=== PATIENT | female | born 1970 | race Caucasian/White ===

== ENCOUNTER 2017-01-01 00:17 | Inpatient (IN) | payer OTHER ==
[2017-01-01] VITALS (8 sets, daily range): BP systolic 101–123; BP diastolic 47–58
[~2017-01-01] VITALS: Ht 170.2 cm; Wt 64.1 kg
[~2017-01-01 00:17] MED LIST: /PANT40TA PO; ALTACE PO; ASPI81TA13 PO; ASPI81TA85 PO; ATEN25TA PO; ATOR1TAB19 PO; BIOT50004 PO; BUSP30TA PO; COLA100C PO; DEPA250T2 PO; DEPA500T2 PO; DESYREL PO; DRIS50002 PO; FOLI1TAB2 PO; GABA800T PO; HUMA100I3 SC; HUMALOG; IBUP200C PO; IBUP800T23 PO; INSUHUMDS SC; INSULADS SC; INSULIN PUMP HUMALOG; LATU40TA PO; LIDO4CR TOP; LISI2.5T3 PO; MAALSUS2 PO; MAGN1TAB25 PO; MAGN400T5 PO; METH10TA PO; METO50TA2 PO; MOM30SS PO; MUCI600T34 PO; NEUR300C PO; NICO14DI3 TD; OXYC15TA66 PO; PERCOCET PO; PHEN25IN3 PR; PROZ20CA11 PO; RAMI25CA PO; REGL10TA6 PO; SENO8.6T10 PO; SENO8.6T2 PO; TAPA10TA2 PO; THIA50CA PO; TRAZ100T4 PO; TYLE650T30 PO; VICO7.5T11 PO; VIST25CA PO; ZANT1TAB PO; ZEST2.5T3 PO; ZOFR4SOL PO; ZOFR4TAB3 PO
[2017-01-01] MEDS ORDERED: D5W/0.45% SODIUM CHLORIDE 1,000 ML IV SCH ×2 (00:27→14:30)
[2017-01-01] MEDS: NS 1,000 ML IV SCH ×2 (00:27→06:54)
[2017-01-01] MEDS ORDERED: HumuLIN R (REGULAR) INSULIN (NovoLIN R) **100U/ML** PER UNIT IV ONE ×2 (00:30→15:30)
[2017-01-01] MEDS ORDERED: INSULIN HUMAN REGULAR 100 UNITS in NS 99 ML IV SCH ×3 (02:45→15:30)
[2017-01-01] MEDS ORDERED: INSULIN IV RATE CHANGE DOCUMENTATION ML/HR XX SCH ×2 (02:45→15:15)
[2017-01-01] MEDS ORDERED: LEVO25TA5 PO (02:58)
[2017-01-01 03:10] LABS: AMPHETAMINES LEVEL URINE NEGATIVE (NEGATIVE); BENZODIAZEPINES URINE NEGATIVE (NEGATIVE); COCAINE METABOLITE URINE NEGATIVE (NEGATIVE); CONTROL LINE INT CTR LINE PRESENT; METHADONE URINE NEGATIVE (NEGATIVE); OPIATES URINE POSITIVE (NEGATIVE); TRICYCLIC ANTIDEPRESS URINE NEGATIVE (NEGATIVE)
--- NOTE | 2017-01-01 03:20 | REPUSA ---
CLINICAL HISTORY: Cough. COMMENTS: Single view of the chest reveals no evidence of active pleural or pulmonary parenchymal abnormality. The heart, mediastinum and pulmonary vessels appear normal. IMPRESSION: NORMAL CHEST. Thank you for your kind referral of this patient.
[2017-01-01] MEDS ORDERED: ONDANSETRON 4MG/2ML VIAL (J2405) IV PRN (03:30)
[2017-01-01 03:42] LABS: ALBUMIN 2.7 GM/DL (3.2-5.2); ALBUMIN/GLOBULIN RATIO 1.08 (1.00-1.93); ALT/SGPT 16 U/L (12-78); ANION GAP 16 MEQ/L (8-16); AST/SGOT 10 U/L (15-37); BILIRUBIN,TOTAL 0.5 MG/DL (0.2-1.0); BLOOD UREA NITROGEN 25 MG/DL (7-18); CALCIUM LEVEL 7.6 MG/DL (8.5-10.1); CARBON DIOXIDE LEVEL 16 MEQ/L (21-32); CHLORIDE LEVEL 108 MEQ/L (98-107); CREATININE FOR GFR 1.08 MG/DL (0.55-1.02); GLOMERULAR FILTRATION RATE 57.9 (>58); GLUCOSE, FASTING 269 MG/DL (70-105); MAGNESIUM LEVEL 1.4 MG/DL (1.8-2.4); PHOSPHORUS LEVEL 2.7 MG/DL (2.5-4.9); POTASSIUM SERUM 4.1 MEQ/L (3.5-5.1); SODIUM LEVEL 140 MEQ/L (136-145); TOTAL PROTEIN 5.2 GM/DL (6.4-8.2)
[2017-01-01 03:48] LABS: ALKALINE PHOSPHATASE 74 U/L (45-117)
[2017-01-01 04:13] LABS: OSMOLALITY SERUM 294 MOSM/KG (275-295)
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
[2017-01-01 05:01] LABS: VENOUS BASE EXCESS -11.1 (-2.0-2.0); VENOUS O2 SATURATION 97.2 % (60.0-80.0); VENOUS PARTIAL PRESSURE CO2 22.1 mmHg (38.0-50.0); VENOUS PARTIAL PRESSURE O2 94.5 mmHg (30.0-50.0); VENOUS STANDARD HCO3 15.8 MEQ/L
[2017-01-01] MEDS: MAG SULF 1GM/100ML (MAG RUN) 1 GM in APPROPRIATE DILUENT 1 EA IV SCH ×2 (05:04→06:03)
[2017-01-01 05:32] LABS: ANION GAP 13 MEQ/L (8-16); BLOOD UREA NITROGEN 26 MG/DL (7-18); CALCIUM LEVEL 7.7 MG/DL (8.5-10.1); CARBON DIOXIDE LEVEL 17 MEQ/L (21-32); CHLORIDE LEVEL 111 MEQ/L (98-107); CREATININE FOR GFR 0.99 MG/DL (0.55-1.02); GLOMERULAR FILTRATION RATE > 60.0 (>58); GLUCOSE, FASTING 248 MG/DL (70-105); POTASSIUM SERUM 3.9 MEQ/L (3.5-5.1); SODIUM LEVEL 141 MEQ/L (136-145)
[2017-01-01] MEDS ORDERED: LEVOTHYROXINE 0.025 MG TAB (25 MCG) PO SCH (06:00)
[2017-01-01] MEDS: LevoFLOXacin 750 MG TABLET PO SCH (06:03)
[2017-01-01 07:54] LABS: ANION GAP 12 MEQ/L (8-16); BLOOD UREA NITROGEN 25 MG/DL (7-18); CALCIUM LEVEL 8.1 MG/DL (8.5-10.1); CARBON DIOXIDE LEVEL 17 MEQ/L (21-32); CHLORIDE LEVEL 112 MEQ/L (98-107); GLOMERULAR FILTRATION RATE > 60.0 (>58); GLUCOSE, FASTING 254 MG/DL (70-105); POTASSIUM SERUM 3.9 MEQ/L (3.5-5.1); SODIUM LEVEL 141 MEQ/L (136-145)
[2017-01-01] MEDS: LISINOPRIL *2.5 MG* TAB PO SCH (08:24)
[2017-01-01] MEDS ORDERED: ENOXAPARIN 30 MG/0.3 ML SYR (J1650) SC SCH (09:00)
[2017-01-01 09:45] LABS: ANION GAP 13 MEQ/L (8-16); BLOOD UREA NITROGEN 23 MG/DL (7-18); CALCIUM LEVEL 7.8 MG/DL (8.5-10.1); CARBON DIOXIDE LEVEL 17 MEQ/L (21-32); CHLORIDE LEVEL 113 MEQ/L (98-107); CREATININE FOR GFR 0.87 MG/DL (0.55-1.02); GLOMERULAR FILTRATION RATE > 60.0 (>58); GLUCOSE, FASTING 215 MG/DL (70-105); MAGNESIUM LEVEL 2.1 MG/DL (1.8-2.4); POTASSIUM SERUM 4.1 MEQ/L (3.5-5.1); SODIUM LEVEL 143 MEQ/L (136-145)
[2017-01-01 11:41] LABS: CALCIUM LEVEL 8.7 MG/DL (8.5-10.1); CREATININE FOR GFR 1.11 MG/DL (0.55-1.02); GLOMERULAR FILTRATION RATE 56.1 (>58)
[2017-01-01 14:04] LABS: CALCIUM LEVEL 8.5 MG/DL (8.5-10.1); CREATININE FOR GFR 1.13 MG/DL (0.55-1.02); GLOMERULAR FILTRATION RATE 54.9 (>58)
[2017-01-01 14:17] LABS: POTASSIUM SERUM 5.6 MEQ/L (3.5-5.1)
[2017-01-01] MEDS ORDERED: NS 1,000 ML IV SCH ×2 (14:30→15:05)
[2017-01-01] MEDS: D5W/0.45% SODIUM CHLORIDE 1,000 ML IV SCH ×2 (15:05→20:00)
[2017-01-01] MEDS: INSULIN IV RATE CHANGE DOCUMENTATION ML/HR XX SCH ×4 (15:24→20:03)
[2017-01-01 15:35] LABS: CALCIUM LEVEL 8.6 MG/DL (8.5-10.1); CREATININE FOR GFR 1.27 MG/DL (0.55-1.02)
[2017-01-01 15:37] LABS: POTASSIUM SERUM 5.3 MEQ/L (3.5-5.1)
--- NOTE | 2017-01-01 17:24 | REP ---
Clinical: Central line placement . Comparison: 01/01/2017 . Findings: The mediastinum and cardiac silhouette are stable and within normal limits for portable technique. Left subclavian catheter with tip in the SVC. The lung alonso are clear without acute consolidation, effusion, or pneumothorax. Skeletal structures are intact. Impression: Normal portable chest x-ray Subclavian catheter with tip in the SVC. No pneumothorax. Signed by Luis Antonio Verde MD 01/01/2017 05:16 P
[2017-01-01 18:19] LABS: CALCIUM LEVEL 8.2 MG/DL (8.5-10.1); CREATININE FOR GFR 1.08 MG/DL (0.55-1.02); GLOMERULAR FILTRATION RATE 57.9 (>58); POTASSIUM SERUM 4.4 MEQ/L (3.5-5.1)
[2017-01-01 20:49] LABS: ANION GAP 10 MEQ/L (8-16); BLOOD UREA NITROGEN 28 MG/DL (7-18); CALCIUM LEVEL 8.2 MG/DL (8.5-10.1); CARBON DIOXIDE LEVEL 21 MEQ/L (21-32); CHLORIDE LEVEL 113 MEQ/L (98-107); CREATININE FOR GFR 0.98 MG/DL (0.55-1.02); GLOMERULAR FILTRATION RATE > 60.0 (>58); GLUCOSE, FASTING 141 MG/DL (70-105); POTASSIUM SERUM 4.6 MEQ/L (3.5-5.1); SODIUM LEVEL 144 MEQ/L (136-145)
[2017-01-01] MEDS ORDERED: traZODone 100 MG TAB PO PRN ×2 (21:00→21:15)
[2017-01-01] MEDS ORDERED: GLUCOSE 4 GM CHEW TABLET PO PRN (21:15)
[2017-01-01] MEDS ORDERED: GLUCAGON FOR INJ 1 MG VIAL (J1610) SC PRN (21:15)
[2017-01-01] MEDS ORDERED: DEXTROSE 50% 50 ML SYRINGE IV PRN (21:15)
[2017-01-01] MEDS: LEVEMIR (INSULIN DETEMIR) 1 UNITS/0.01ML SC SCH (22:12)
[2017-01-01] MEDS: guaiFENesin ER 600 MG TAB PO SCH (22:13)
[2017-01-01] MEDS: traZODone 100 MG TAB PO PRN (22:13)
[2017-01-02] VITALS: BP 102/57
[2017-01-02 00:04] LABS: ANION GAP 8 MEQ/L (8-16); BLOOD UREA NITROGEN 25 MG/DL (7-18); CALCIUM LEVEL 7.8 MG/DL (8.5-10.1); CARBON DIOXIDE LEVEL 22 MEQ/L (21-32); CHLORIDE LEVEL 112 MEQ/L (98-107); CREATININE FOR GFR 0.91 MG/DL (0.55-1.02); GLOMERULAR FILTRATION RATE > 60.0 (>58); GLUCOSE, FASTING 183 MG/DL (70-105); POTASSIUM SERUM 4.4 MEQ/L (3.5-5.1); SODIUM LEVEL 142 MEQ/L (136-145)
[2017-01-02] MEDS: HumaLOG INSULIN (NovoLOG) PER UNIT SC SCH ×7 (00:08→23:43)
[2017-01-02] MEDS: D5W/0.45% SODIUM CHLORIDE 1,000 ML IV SCH ×3 (00:41→10:17)
[2017-01-02 04:00] VITALS: BP 113/59
[2017-01-02] MEDS: LevoFLOXacin 750 MG TABLET PO SCH (05:09)
[2017-01-02 05:28] LABS: BASO % 0.1 % (0.0-1.0); EOS % 0.1 % (0.0-3.0); LARGE UNSTAINED CELL # 0.2 K/mm3 (0.0-0.4); LARGE UNSTAINED CELL % 1.4 % (0.0-4.0); LYMPH % 17.3 % (24.0-44.0); MEAN CORPUSCULAR HEMOGLOBIN 30.6 pg (27.0-33.0); MONO # 0.6 K/mm3 (0.0-0.8); MONO % 5.4 % (0.0-5.0); NEUTROPHILS # 8.9 K/mm3 (1.8-7.7); NEUTROPHILS % 75.6 % (36.0-66.0); PLATELET COUNT, AUTOMATED 347 k/mm3 (150-450); RED CELL DISTRIBUTION WIDTH 12.8 % (11.5-14.5); WHITE BLOOD COUNT 11.7 K/mm3 (4.0-10.0)
[2017-01-02 05:36] LABS: ANION GAP 8 MEQ/L (8-16); BLOOD UREA NITROGEN 20 MG/DL (7-18); CARBON DIOXIDE LEVEL 24 MEQ/L (21-32); CHLORIDE LEVEL 114 MEQ/L (98-107); CREATININE FOR GFR 0.81 MG/DL (0.55-1.02); GLOMERULAR FILTRATION RATE > 60.0 (>58); GLUCOSE, FASTING 149 MG/DL (70-105); POTASSIUM SERUM 3.8 MEQ/L (3.5-5.1); SODIUM LEVEL 146 MEQ/L (136-145)
[2017-01-02 07:30] VITALS: BP 113/58
[2017-01-02] MEDS: guaiFENesin ER 600 MG TAB PO SCH ×2 (08:06→20:33)
[2017-01-02] MEDS: LISINOPRIL *2.5 MG* TAB PO SCH (08:06)
[2017-01-02] MEDS ORDERED: guaiFENesin ER 600 MG TAB PO SCH ×2 (09:00)
[2017-01-02 09:10] VITALS: BP 110/53
[2017-01-02] MEDS ORDERED: SODIUM CHLORIDE 0.9% INJ 10 ML SYR IV PRN (09:30)
--- NOTE | 2017-01-02 10:39 | IPNPDOC ---
Subjective Date Seen The patient was seen on 01/02/17. Subjective Chief Complaint/HPI The patient is a 46-year-old female admitted with a reason for visit of DKA. General: Denies: Chills, Night Sweats Constitutional: Denies: Chills, Fever Eyes: Denies: Pain, Vision change ENT: Denies: Ear Pain, Head Aches Skin: Denies: Lesions, Rash Pulmonary: Denies: Cough, Dyspnea Cardiovascular: Denies: Chest Pain, Palpitations Gastrointestinal: Denies: Abdominal Pain, Nausea, Vomiting Genitourinary: Denies: Dysuria, Frequency Hematologic: Denies: Bleeding Excessively, Bruising Objective Physical Examination General Exam: Positive: Alert, Cooperative, No Acute Distress ENT Exam: Positive: Atraumatic Neck Exam: Negative: JVD Chest Exam: Positive: Clear to auscultation, Normal air movement, Rhonchi ( Upper lung zones bilaterally), Negative: Rales, Wheezing Heart Exam: Positive: Normal S1, Normal S2, Rate Normal Telemetry: Positive: Sinus Abdomen Exam: Positive: Soft, Negative: Tenderness Extremity Exam: Negative: Swelling, Tenderness Assessment /Plan Plan/VTE VTE Prophylaxis Ordered?: No VTE Exclusion Mechanical Proph: Low Risk for VTE Plan 1. Diabetic ketoacidosis likely 2/2 Viral Upper Respiratory Tract Infection, resolved s/p IVF Hydration, IV Insulin Therapy The patient has been transitioned to SC Insulin for now We will transition her to insulin pump therapy if she remains stable on SC insulin therapy this afternoon Levemir 10 units qhs, ISS q4h We will continue to monitor her blood sugar levels 2. History of hypothyroidism The patient's lab work revels low TSH levels, elevated T4 (4.2) and T3 (12.1) levels suggestive of a Hyperthyroid function at this time After discussion with the patient, she states that her thyroid hormone levels have been fluctuating for the last 6 months. She follows at [facility] in [place], and they have been titrating her Synthroid dose She has been taking 25 mcg of Synthroid at home, however this has been held since admission here The patient is not displaying any signs or symptoms of hyperthyroidism at this time We will withhold her Synthroid dose, and ask her to follow-up with the [facility] as an outpatient 3. Possible Viral vs Bacterial URI The patient's symptoms have markedly improved at this time We will finish her trial of Levaquin here 4. History of subdural hematoma secondary to blunt trauma. 5. History of polysubstance abuse. The patient states that she has attended rehabilitation for this, and denies any recreational drug use Urine toxicology screen was positive for opiates. 6. History of suicide attempt. Denies any suicidal ideations 7. Hypertension Continue lisinopril 8. History of tobacco use. Quit smoking a year ago. DVT prophylaxis-we will continue on SCDs, given her history of subdural hematoma Disposition-pending clinical improvement, if the patient's glucose levels remain stable after she is transitioned to her insulin pump therapy she may be discharged in next 24 hours. VS, I&O, 24H, Fishbone Vital Signs/I&O Vital Signs Date Time Temp Pulse Resp B/P Pulse Ox O2 Delivery O2 Flow Rate FiO2 01/02/17 09:10 98.4 92 18 110/53 94 Room Air 01/01/17 02:30 2.0 I&O- Last 24 Hours up to 6 AM 01/02/17 06:00 Intake Total 4451 ml Output Total 3700 ml Balance 751 ml Laboratory Data 24H LABS Laboratory Tests 2 01/01/17 11:18: Anion Gap 14, Blood Urea Nitrogen 24H, Creatinine 1.11H, Sodium Level 141, Potassium Level 5.0#, Chloride Level 111H, Carbon Dioxide Level 16L, Calcium Level 8.7, Glomerular Filtration Rate 56.1L 01/01/17 11:24: Bedside Glucose (Misc Panel) 298H 01/01/17 13:22: Anion Gap 17H, Blood Urea Nitrogen 29H, Creatinine 1.13H, Sodium Level 137, Potassium Level 5.6H, Chloride Level 107, Carbon Dioxide Level 13L, Calcium Level 8.5, Glomerular Filtration Rate 54.9L 01/01/17 14:55: Bedside Glucose (Misc Panel) 439H 01/01/17 14:56: Anion Gap 19H, Blood Urea Nitrogen 33H, Creatinine 1.27H, Sodium Level 139, Potassium Level 5.3H, Chloride Level 108H, Carbon Dioxide Level 12L, Calcium Level 8.6, Glomerular Filtration Rate 48.0L 01/01/17 15:59: Bedside Glucose (Misc Panel) 410H 01/01/17 17:11: Bedside Glucose (Misc Panel) 327H 01/01/17 17:39: Anion Gap 13, Blood Urea Nitrogen 33H, Creatinine 1.08H, Sodium Level 143, Potassium Level 4.4, Chloride Level 112H, Carbon Dioxide Level 18L, Calcium Level 8.2L, Glomerular Filtration Rate 57.9L, Total Creatine Kinase 117, Creatine Kinase MB 2.9, Creatine Kinase MB Relative Index 2.47, Troponin I 0.42H 01/01/17 18:00: Bedside Glucose (Misc Panel) 306H 01/01/17 18:43: Bedside Glucose (Misc Panel) 260H 01/01/17 19:57: Bedside Glucose (Misc Panel) 173H 01/01/17 20:11: Anion Gap 10, Blood Urea Nitrogen 28H, Creatinine 0.98, Sodium Level 144, Potassium Level 4.6, Chloride Level 113H, Carbon Dioxide Level 21, Calcium Level 8.2L, Glomerular Filtration Rate > 60.0 01/01/17 20:59: Bedside Glucose (Misc Panel) 147H 01/01/17 22:04: Bedside Glucose (Misc Panel) 160H 01/01/17 23:03: Bedside Glucose (Misc Panel) 190H 01/01/17 23:33: Anion Gap 8, Blood Urea Nitrogen 25H, Creatinine 0.91, Sodium Level 142, Potassium Level 4.4, Chloride Level 112H, Carbon Dioxide Level 22, Calcium Level 7.8L, Glomerular Filtration Rate > 60.0 01/02/17 00:02: Bedside Glucose (Misc Panel) 178H 01/02/17 04:15: Bedside Glucose (Misc Panel) 154H 01/02/17 05:10: Anion Gap 8, White Blood Count 11.7H, Red Blood Count 3.22L, Hemoglobin 9.9L, Hematocrit 29.0L, Mean Corpuscular Volume 90.0, Mean Corpuscular Hemoglobin 30.6 , Mean Corpuscular Hemoglobin Concent 34.0, Red Cell Distribution Width 12.8, Platelet Count 347, Neutrophils (%) (Auto) 75.6H, Lymphocytes (%) (Auto) 17.3L, Monocytes (%) (Auto) 5.4H, Eosinophils (%) (Auto) 0.1, Basophils (%) (Auto) 0.1 , Neutrophils # (Auto) 8.9H, Lymphocytes # (Auto) 2.0, Monocytes # (Auto) 0.6, Eosinophils # (Auto) 0.0, Basophils # (Auto) 0.0, Blood Urea Nitrogen 20H, Creatinine 0.81, Sodium Level 146H, Potassium Level 3.8, Chloride Level 114H, Carbon Dioxide Level 24, Calcium Level 8.0L, Glomerular Filtration Rate > 60.0, Large Unclassified Cells # 0.2, Large Unclassified Cells % 1.4 01/02/17 07:52: Bedside Glucose (Misc Panel) 165H CBC/BMP Laboratory Tests 01/01/17 11:18 Calcium Level 8.7 01/01/17 13:22 Calcium Level 8.5 01/01/17 14:56 Calcium Level 8.6 01/01/17 17:39 Calcium Level 8.2 L, Total Creatine Kinase 117 01/01/17 20:11 Calcium Level 8.2 L 01/01/17 23:33 Calcium Level 7.8 L 01/02/17 05:10 Calcium Level 8.0 L, Red Blood Count 3.22 L, Mean Corpuscular Volume 90.0, Mean Corpuscular Hemoglobin 30.6, Mean Corpuscular Hemoglobin Concent 34.0, Red Cell Distribution Width 12.8, Neutrophils (%) (Auto) 75.6 H, Lymphocytes (%) (Auto) 17.3 L, Monocytes (%) (Auto) 5.4 H, Eosinophils (%) (Auto) 0.1, Basophils (%) ( Auto) 0.1, Neutrophils # (Auto) 8.9 H, Lymphocytes # (Auto) 2.0, Monocytes # ( Auto) 0.6, Eosinophils # (Auto) 0.0, Basophils # (Auto) 0.0 Microbiology Microbiology 01/01/17 Blood Culture - Preliminary, Resulted No growth after 24 hours . All specim... 01/01/17 Blood Culture - Preliminary, Resulted No growth after 24 hours . All specim... 01/01/17 MRSA Screen - Final, Complete 01/01/17 Respiratory Virus Panel (PCR) ([facility]) - Final, Complete STONE JONES MD Jan 02, 2017 10:39
--- NOTE | 2017-01-02 11:23 | RO ---
DATE OF PROCEDURE: 01/01/2017 PREPROCEDURE DIAGNOSIS: Diabetic ketoacidosis, no vascular access. POSTPROCEDURE DIAGNOSIS: Diabetic ketoacidosis, no vascular access. SURGEON: Farhan Hernandez MD PROCEDURE: Insertion of left subclavian central line. ANESTHESIA: DESCRIPTION OF PROCEDURE: The patient's left infraclavicular fossa was prepped and draped in the usual sterile fashion. The infraclavicular fossa was then infiltrated with 1% Xylocaine. The subclavian vein was found on the first pass and the wire was passed without difficulty. The tract was dilated and the triple lumen catheter was placed by Seldinger technique. The ports were aspirated and flushed without difficulty and the catheter was secured to the chest wall with two #3-0 silk sutures. The patient tolerated the procedure well and chest x-ray is pending.
[2017-01-02] MEDS: SODIUM CHLORIDE 0.9% INJ 10 ML SYR IV SCH ×2 (12:13→22:00)
[2017-01-02 14:00] VITALS: BP 132/61
[2017-01-02] MEDS: LEVEMIR (INSULIN DETEMIR) 1 UNITS/0.01ML SC SCH (20:35)
[2017-01-02] MEDS ORDERED: LEVEMIR (INSULIN DETEMIR) 1 UNITS/0.01ML SC SCH (21:00)
[2017-01-02 22:00] VITALS: BP 128/63
[2017-01-02] MEDS: traZODone 100 MG TAB PO PRN (22:00)
[2017-01-03] MEDS: HumaLOG INSULIN (NovoLOG) PER UNIT SC SCH ×2 (03:59→08:00)
[2017-01-03] MEDS: LevoFLOXacin 750 MG TABLET PO SCH (05:30)
[2017-01-03] MEDS: SODIUM CHLORIDE 0.9% INJ 10 ML SYR IV SCH ×3 (05:31→21:25)
[2017-01-03 05:49] LABS: BASO % 0.2 % (0.0-1.0); EOS % 0.9 % (0.0-3.0); LARGE UNSTAINED CELL # 0.1 K/mm3 (0.0-0.4); LARGE UNSTAINED CELL % 2.2 % (0.0-4.0); LYMPH # 1.9 K/mm3 (1.5-4.5); LYMPH % 31.1 % (24.0-44.0); MEAN CORPUSCULAR HEMOGLOBIN 30.1 pg (27.0-33.0); MEAN CORPUSCULAR HGB CONC 33.4 g/dl (32.0-36.5); MEAN CORPUSCULAR VOLUME 90.1 fl (80.0-96.0); MONO # 0.5 K/mm3 (0.0-0.8); MONO % 7.8 % (0.0-5.0); NEUTROPHILS # 3.6 K/mm3 (1.8-7.7); NEUTROPHILS % 57.9 % (36.0-66.0); PLATELET COUNT, AUTOMATED 319 k/mm3 (150-450); RED CELL DISTRIBUTION WIDTH 12.6 % (11.5-14.5); WHITE BLOOD COUNT 6.2 K/mm3 (4.0-10.0)
[2017-01-03 06:00] VITALS: BP 114/55
[2017-01-03 06:04] LABS: ALBUMIN 2.4 GM/DL (3.2-5.2); ALBUMIN/GLOBULIN RATIO 0.96 (1.00-1.93); ALKALINE PHOSPHATASE 82 U/L (45-117); ALT/SGPT 52 U/L (12-78); ANION GAP 8 MEQ/L (8-16); AST/SGOT 64 U/L (15-37); BILIRUBIN,TOTAL 0.4 MG/DL (0.2-1.0); BLOOD UREA NITROGEN 12 MG/DL (7-18); CALCIUM LEVEL 8.1 MG/DL (8.5-10.1); CARBON DIOXIDE LEVEL 26 MEQ/L (21-32); CHLORIDE LEVEL 112 MEQ/L (98-107); CREATININE FOR GFR 0.63 MG/DL (0.55-1.02); GLOMERULAR FILTRATION RATE > 60.0 (>58); GLUCOSE, FASTING 110 MG/DL (70-105); POTASSIUM SERUM 4.3 MEQ/L (3.5-5.1); SODIUM LEVEL 146 MEQ/L (136-145); TOTAL PROTEIN 4.9 GM/DL (6.4-8.2)
[2017-01-03] MEDS: LISINOPRIL *2.5 MG* TAB PO SCH (08:20)
[2017-01-03] MEDS: guaiFENesin ER 600 MG TAB PO SCH ×2 (08:21→21:25)
--- NOTE | 2017-01-03 11:18 | IPNPDOC ---
Subjective Date Seen The patient was seen on 01/03/17. Subjective Chief Complaint/HPI The patient is a 46-year-old female admitted with a reason for visit of DKA. General: Denies: Chills, Night Sweats Constitutional: Denies: Chills, Fever Eyes: Denies: Pain, Vision change ENT: Denies: Ear Pain, Head Aches Skin: Denies: Lesions, Rash Pulmonary: Denies: Cough, Dyspnea Cardiovascular: Denies: Chest Pain, Palpitations Gastrointestinal: Denies: Nausea, Vomiting Genitourinary: Denies: Dysuria, Frequency Hematologic: Denies: Bleeding Excessively, Bruising Objective Physical Examination General Exam: Positive: Alert, Cooperative, No Acute Distress ENT Exam: Positive: Atraumatic Neck Exam: Negative: JVD Chest Exam: Positive: Clear to auscultation, Normal air movement, Rhonchi ( Upper lung zones bilaterally), Negative: Rales, Wheezing Heart Exam: Positive: Normal S1, Normal S2, Rate Normal Telemetry: Positive: Sinus Abdomen Exam: Positive: Soft, Negative: Tenderness Extremity Exam: Negative: Swelling, Tenderness Assessment /Plan Plan/VTE VTE Prophylaxis Ordered?: No VTE Exclusion Mechanical Proph: Low Risk for VTE Plan 1. Diabetic ketoacidosis likely 2/2 Viral Upper Respiratory Tract Infection, resolved s/p IVF Hydration, IV Insulin Therapy She did have an episode of hypoglycemia overnight, and this may be attributed to decreased appetite The patient has been transitioned from SC Insulin to Insulin Pump therapy now, as this will certainly control her blood sugars more precisely We will continue to monitor her blood sugar levels 2. History of hypothyroidism The patient's lab work revels low TSH levels, elevated T4 (4.2) and T3 (12.1) levels suggestive of a Hyperthyroid function at this time After discussion with the patient, she states that her thyroid hormone levels have been fluctuating for the last 6 months. She follows at [facility] in [place], and they have been titrating her Synthroid dose She has been taking 25 mcg of Synthroid at home, however this has been held since admission here The patient is not displaying any signs or symptoms of hyperthyroidism at this time We will withhold her Synthroid dose, and ask her to follow-up with the [facility] as an outpatient 3. Possible Viral vs Bacterial URI The patient's symptoms have markedly improved at this time We will finish her trial of Levaquin here 4. History of subdural hematoma secondary to blunt trauma. 5. History of polysubstance abuse. The patient states that she has attended rehabilitation for this, and denies any recreational drug use Urine toxicology screen was positive for opiates. 6. History of suicide attempt. Denies any suicidal ideations 7. Hypertension Continue lisinopril 8. History of tobacco use. Quit smoking a year ago. DVT prophylaxis-we will continue on SCDs, given her history of subdural hematoma Disposition-patient transitioned to Insulin Pump therapy, will monitor her glucose levels over the next 24 hrs given her labile glucose levels. Anticipate D/C in the AM if glucose levels stable. VS, I&O, 24H, Fishbone Vital Signs/I&O Vital Signs Date Time Temp Pulse Resp B/P Pulse Ox O2 Delivery O2 Flow Rate FiO2 01/03/17 08:48 Room Air 01/03/17 08:20 123/67 01/03/17 06:00 97.8 80 17 91 01/01/17 02:30 2.0 I&O- Last 24 Hours up to 6 AM 01/03/17 05:59 Intake Total 2500 ml Output Total 1400 ml Balance 1100 ml Laboratory Data 24H LABS Laboratory Tests 2 01/02/17 11:38: Bedside Glucose (Misc Panel) 224H 01/02/17 14:05: Bedside Glucose (Misc Panel) 224H 01/02/17 16:19: Bedside Glucose (Misc Panel) 268H 01/02/17 18:47: Bedside Glucose (Misc Panel) 56L 01/02/17 19:30: Bedside Glucose (Misc Panel) 141H 01/02/17 23:25: Bedside Glucose (Misc Panel) 189H 01/03/17 02:07: Bedside Glucose (Misc Panel) 37*L 01/03/17 02:20: Bedside Glucose Confirm (Misc) 45 01/03/17 03:51: Bedside Glucose (Misc Panel) 107H 01/03/17 05:34: Blood Urea Nitrogen 12, Creatinine 0.63, Sodium Level 146H, Potassium Level 4.3 , Chloride Level 112H, Carbon Dioxide Level 26, Calcium Level 8.1L, Aspartate Amino Transf (AST/SGOT) 64H, Alanine Aminotransferase (ALT/SGPT) 52, Alkaline Phosphatase 82, Total Bilirubin 0.4, Total Protein 4.9L, Albumin 2.4L, Albumin/ Globulin Ratio 0.96L, Anion Gap 8, White Blood Count 6.2, Red Blood Count 3.51L , Hemoglobin 10.5L, Hematocrit 31.6L, Mean Corpuscular Volume 90.1, Mean Corpuscular Hemoglobin 30.1, Mean Corpuscular Hemoglobin Concent 33.4, Red Cell Distribution Width 12.6, Platelet Count 319, Neutrophils (%) (Auto) 57.9, Lymphocytes (%) (Auto) 31.1, Monocytes (%) (Auto) 7.8H, Eosinophils (%) (Auto) 0.9, Basophils (%) (Auto) 0.2, Neutrophils # (Auto) 3.6, Lymphocytes # (Auto) 1.9, Monocytes # (Auto) 0.5, Eosinophils # (Auto) 0.0, Basophils # (Auto) 0.0, Glomerular Filtration Rate > 60.0, Large Unclassified Cells # 0.1, Large Unclassified Cells % 2.2 01/03/17 09:02: Bedside Glucose (Misc Panel) 167H CBC/BMP Laboratory Tests 01/03/17 05:34 Calcium Level 8.1 L, Aspartate Amino Transf (AST/SGOT) 64 H, Alanine Aminotransferase (ALT/SGPT) 52, Alkaline Phosphatase 82, Total Bilirubin 0.4, Total Protein 4.9 L, Albumin 2.4 L, Red Blood Count 3.51 L, Mean Corpuscular Volume 90.1, Mean Corpuscular Hemoglobin 30.1, Mean Corpuscular Hemoglobin Concent 33.4, Red Cell Distribution Width 12.6, Neutrophils (%) (Auto) 57.9, Lymphocytes (%) (Auto) 31.1, Monocytes (%) (Auto) 7.8 H, Eosinophils (%) (Auto) 0.9, Basophils (%) (Auto) 0.2, Neutrophils # (Auto) 3.6, Lymphocytes # (Auto) 1.9, Monocytes # (Auto) 0.5, Eosinophils # (Auto) 0.0, Basophils # (Auto) 0.0 Microbiology Microbiology 01/01/17 Blood Culture - Preliminary, Resulted No Growth after 48 hours. All Specime... 01/01/17 Blood Culture - Preliminary, Resulted No Growth after 48 hours. All Specime... 01/01/17 MRSA Screen - Final, Complete 01/01/17 Respiratory Virus Panel (PCR) ([facility]) - Final, Complete STONE JONES MD Jan 03, 2017 11:18
[2017-01-03 14:00] VITALS: BP 123/67
[2017-01-03] MEDS: traZODone 100 MG TAB PO PRN (21:25)
[2017-01-03 22:00] VITALS: BP 139/73
[2017-01-04] MEDS: LevoFLOXacin 750 MG TABLET PO SCH (05:40)
[2017-01-04] MEDS: SODIUM CHLORIDE 0.9% INJ 10 ML SYR IV SCH (05:41)
[2017-01-04 06:00] VITALS: BP 122/64
[2017-01-04 06:13] LABS: BASO % 0.2 % (0.0-1.0); EOS # 0.3 K/mm3 (0.0-0.50); EOS % 4.6 % (0.0-3.0); LARGE UNSTAINED CELL # 0.1 K/mm3 (0.0-0.4); LARGE UNSTAINED CELL % 2.5 % (0.0-4.0); LYMPH # 2.4 K/mm3 (1.5-4.5); LYMPH % 39.1 % (24.0-44.0); MEAN CORPUSCULAR HEMOGLOBIN 30.7 pg (27.0-33.0); MEAN CORPUSCULAR HGB CONC 34.1 g/dl (32.0-36.5); MEAN CORPUSCULAR VOLUME 90.1 fl (80.0-96.0); MONO # 0.4 K/mm3 (0.0-0.8); MONO % 6.8 % (0.0-5.0); NEUTROPHILS # 2.7 K/mm3 (1.8-7.7); NEUTROPHILS % 46.8 % (36.0-66.0); PLATELET COUNT, AUTOMATED 328 k/mm3 (150-450); RED CELL DISTRIBUTION WIDTH 12.5 % (11.5-14.5); WHITE BLOOD COUNT 5.7 K/mm3 (4.0-10.0)
[2017-01-04 06:24] LABS: ALBUMIN 2.3 GM/DL (3.2-5.2); ALBUMIN/GLOBULIN RATIO 0.88 (1.00-1.93); ALKALINE PHOSPHATASE 87 U/L (45-117); ALT/SGPT 57 U/L (12-78); ANION GAP 8 MEQ/L (8-16); AST/SGOT 53 U/L (15-37); BILIRUBIN,TOTAL 0.6 MG/DL (0.2-1.0); BLOOD UREA NITROGEN 16 MG/DL (7-18); CALCIUM LEVEL 8.1 MG/DL (8.5-10.1); CARBON DIOXIDE LEVEL 28 MEQ/L (21-32); CHLORIDE LEVEL 110 MEQ/L (98-107); GLOMERULAR FILTRATION RATE > 60.0 (>58); GLUCOSE, FASTING 81 MG/DL (70-105); POTASSIUM SERUM 3.9 MEQ/L (3.5-5.1); SODIUM LEVEL 146 MEQ/L (136-145); TOTAL PROTEIN 4.9 GM/DL (6.4-8.2)
[2017-01-04 09:18] VITALS: BP 122/64
[2017-01-04] MEDS: LISINOPRIL *2.5 MG* TAB PO SCH (09:18)
[2017-01-04] MEDS: guaiFENesin ER 600 MG TAB PO SCH (09:18)
[2017-01-04] MEDS ORDERED: LEVA750T PO (09:31)
--- NOTE | 2017-01-04 13:49 | DS.PDOC ---
Discharge Summary General Date of Admission Jan 01, 2017 at 11:51 Date of Discharge Jan 04, 2017 at 11:23 Discharge Summary PROCEDURES PERFORMED DURING STAY: None. COMPLICATIONS/CHIEF COMPLAINT: DKA DISCHARGE DIAGNOSES: 1. . Diabetic ketoacidosis 2. . Community-acquired pneumonia 3. . Hyperthyroidism SECONDARY DIAGNOSES: 1. . Diabetic ketoacidosis 2. . Community-acquired pneumonia 3. . Hyperthyroidism HISTORY OF PRESENT ILLNESS/HOSPITAL COURSE: 46-year-old female with past medical history of insulin-dependent diabetes mellitus, with insulin pump, dyslipidemia, history of hypothyroidism, polysubstance abuse, hypertension, and history of blood head trauma with subdural hematoma presented to the ER with a chief complaint of productive cough and fever. The patient states that she had been having a fever of 101, with a productive cough, and generalized fatigue for the past 10 days. In the [place] ER, the patient was found to have a blood sugar level greater than 500. The patient was started on IV fluids, and given subcutaneous insulin and sent to [facility] for further evaluation and management. During the patient's hospital stay here, she was continued on IV fluids, and IV insulin for management of diabetic ketoacidosis. In addition, the patient was started on Levaquin for management of possible underlying pneumonia. Once the patient's blood sugar levels, and underlying acidosis was stabilized, the patient was transitioned back on her insulin pump therapy. At this time, the patient's blood sugar levels have remained stable over the last 24 hours. In addition, the patient's symptoms of upper respiratory tract infection, and generalized fatigue have markedly improved since her hospitalization. In addition, the patient was found to have a low TSH level and elevated free T4 and free T3 levels. Of note, the patient states that her thyroid function tests have fluctuated between hypo-and hyperthyroid states over the last 6 months. She does follow with the [facility] for management of this. I informed the patient of the above findings, and have held her levothyroxine therapy since her admission here. She has not displayed any signs or symptoms of hyperthyroidism here. I have advised the patient to follow-up with the [facility] for further evaluation and management of her levothyroxine medication. ALLERGIES: Please see below. PHYSICAL EXAMINATION ON DISCHARGE: VITAL SIGNS: Please see below. General Exam: Positive: Alert, Cooperative, No Acute Distress ENT Exam: Positive: Atraumatic Neck Exam: Negative: JVD Chest Exam: Positive: Clear to auscultation, Normal air movement, Rhonchi ( Upper lung zones bilaterally), Negative: Rales, Wheezing Heart Exam: Positive: Normal S1, Normal S2, Rate Normal Telemetry: Positive: Sinus Abdomen Exam: Positive: Soft, Negative: Tenderness Extremity Exam: Negative: Swelling, Tenderness LABORATORY DATA: Please see below. IMAGING: Clinical: Central line placement . Comparison: 01/01/2017 . Findings: The mediastinum and cardiac silhouette are stable and within normal limits for portable technique. Left subclavian catheter with tip in the SVC. The lung alonso are clear without acute consolidation, effusion, or pneumothorax. Skeletal structures are intact. Impression: Normal portable chest x-ray VTE Prophylaxis ordered?: Yes DISCHARGE CONDITION: Stable. DISPOSITION: . Home ACTIVITY: . As tolerated DIET: . Carb consistent diet DISCHARGE PLAN AND INSTRUCTIONS: 1. . Follow-up with primary care physician within one to 2 weeks 2. . Follow-up of the [facility] for management of diabetes, and thyroid disease 3. . TIME SPENT ON DISCHARGE: Greater than 30 minutes. Vital Signs/I&Os Vital Signs Date Time Temp Pulse Resp B/P Pulse Ox O2 Delivery O2 Flow Rate FiO2 01/04/17 09:18 122/64 01/04/17 06:00 97.1 68 18 91 Room Air 01/01/17 02:30 2.0 I&O- Last 24 Hours up to 6 AM 01/04/17 06:00 Intake Total 2520 ml Output Total 5050 ml Balance -2530 ml Laboratory Data Labs 24H Laboratory Tests 2 01/03/17 16:23: Bedside Glucose (Misc Panel) 148H 01/03/17 20:47: Bedside Glucose (Misc Panel) 104 01/04/17 05:42: Blood Urea Nitrogen 16, Creatinine 0.70, Sodium Level 146H, Potassium Level 3.9 , Chloride Level 110H, Carbon Dioxide Level 28, Calcium Level 8.1L, Aspartate Amino Transf (AST/SGOT) 53H, Alanine Aminotransferase (ALT/SGPT) 57, Alkaline Phosphatase 87, Total Bilirubin 0.6, Total Protein 4.9L, Albumin 2.3L, Albumin/ Globulin Ratio 0.88L, Anion Gap 8, White Blood Count 5.7, Red Blood Count 3.81L , Hemoglobin 11.7L, Hematocrit 34.3L, Mean Corpuscular Volume 90.1, Mean Corpuscular Hemoglobin 30.7, Mean Corpuscular Hemoglobin Concent 34.1, Red Cell Distribution Width 12.5, Platelet Count 328, Neutrophils (%) (Auto) 46.8, Lymphocytes (%) (Auto) 39.1, Monocytes (%) (Auto) 6.8H, Eosinophils (%) (Auto) 4.6H, Basophils (%) (Auto) 0.2, Neutrophils # (Auto) 2.7, Lymphocytes # (Auto) 2.4, Monocytes # (Auto) 0.4, Eosinophils # (Auto) 0.3, Basophils # (Auto) 0.0, Glomerular Filtration Rate > 60.0, Large Unclassified Cells # 0.1, Large Unclassified Cells % 2.5 CBC/BMP Laboratory Tests 01/04/17 05:42 Calcium Level 8.1 L, Aspartate Amino Transf (AST/SGOT) 53 H, Alanine Aminotransferase (ALT/SGPT) 57, Alkaline Phosphatase 87, Total Bilirubin 0.6, Total Protein 4.9 L, Albumin 2.3 L, Red Blood Count 3.81 L, Mean Corpuscular Volume 90.1, Mean Corpuscular Hemoglobin 30.7, Mean Corpuscular Hemoglobin Concent 34.1, Red Cell Distribution Width 12.5, Neutrophils (%) (Auto) 46.8, Lymphocytes (%) (Auto) 39.1, Monocytes (%) (Auto) 6.8 H, Eosinophils (%) (Auto) 4.6 H, Basophils (%) (Auto) 0.2, Neutrophils # (Auto) 2.7, Lymphocytes # (Auto) 2.4, Monocytes # (Auto) 0.4, Eosinophils # (Auto) 0.3, Basophils # (Auto) 0.0 FSBS Laboratory Tests Test 01/03/17 16:23 01/03/17 20:47 Range/Units Bedside Glucose (Misc Panel) 148 104 70-105 MG/DL Microbiology Microbiology 01/01/17 Blood Culture - Preliminary, Resulted No Growth after 72 hours. All specime... 01/01/17 Blood Culture - Preliminary, Resulted No Growth after 72 hours. All specime... 01/01/17 MRSA Screen - Final, Complete 2/24/17 Respiratory Virus Panel (PCR) ([facility]) - Final, Complete Medications Scheduled Biotin (Vitamin H) (Biotin) 5,000 Mcg Cap 5,000 MCG PO DAILY (Reported) Insulin Human Lispro (Humalog) 1 Units/0.01 Ml Inj 0 SC ASDIRECTED (Reported) VIA INSULIN PUMP Levofloxacin Hemihydrate (Levaquin) 750 Mg Tab 750 MG PO DAILY@06 Lisinopril (Lisinopril) 2.5 Mg Tab 2.5 MG PO DAILY (Reported) Scheduled PRN Ibuprofen (Ibuprofen) 800 Mg Tab 800 MG PO TID PRN PRN PAIN (Reported) Allergies Coded Allergies: No Known Drug Allergy (Verified Allergy, Unknown, 01/10/16) STONE JONES MD Jan 04, 2017 13:49
== END 2017-01-04 11:23 | disposition home or self-care (01) | DRG 720 ==
LOC: PREINTOOBSV 01:01 → M ICU 02:21 → OBSVTOIN 11:51 → M MSPAV 01-02 09:04
PROVIDERS: ADMIT Internal Medicine; ATTEND Internal Medicine
PROC: 05H633Z Insertion of Infusion Device into Left Subclavian Vein, Percutaneous Approach (ICD-10-PCS; principal; 2017-01-01)
DX: A41.9 Sepsis, unspecified organism (principal); E13.10 Other specified diabetes mellitus with ketoacidosis without coma; E13.649 Other specified diabetes mellitus with hypoglycemia without coma; E13.65 Other specified diabetes mellitus with hyperglycemia; E78.00 Pure hypercholesterolemia, unspecified; J06.9 Acute upper respiratory infection, unspecified; E03.9 Hypothyroidism, unspecified; I10 Essential (primary) hypertension; M25.551 Pain in right hip; M25.552 Pain in left hip; Z91.5 Personal history of self-harm; Z87.891 Personal history of nicotine dependence; Z79.4 Long term (current) use of insulin

== ENCOUNTER → 2017-08-13 | Outpatient (CLI) | payer MEDICAID ==
[~2017-08-13] MED LIST changes: -ASPI81TA13 PO; +ASPI81TA24 PO; -COLA100C PO; +COLA100C5 PO; -FOLI1TAB2 PO; +FOLI1TAB4 PO; +IBUP1TAB7 PO; -IBUP200C PO; +IBUP200C10 PO; -IBUP800T23 PO; +LEVA750T7 PO; +LEVO25TA5 PO; -METO50TA2 PO; +METO50TA7 PO; -MUCI600T34 PO; +MUCI600T37 PO; -SENO8.6T2 PO; +SENO8.6T5 PO; +TRAZ-136 PO; -TRAZ100T4 PO
[2017-08-13 14:41] LABS: BASO % 0.5 % (0.0-1.0); EOS # 0.2 10^3/uL (0.0-0.50); EOS % 2.4 % (0.0-3.0); IMMATURE GRANULOCYTE % 0.2 % (0-0); LYMPH # 1.9 10^3/uL (1.5-4.5); LYMPH % 23.4 % (24.0-44.0); MEAN CORPUSCULAR HEMOGLOBIN 30.2 pg (27.0-33.0); MEAN CORPUSCULAR HGB CONC 34.5 g/dl (32.0-36.5); MEAN CORPUSCULAR VOLUME 87.5 fl (80.0-96.0); MONO # 0.5 10^3/uL (0.0-0.8); MONO % 6.7 % (0.0-5.0); NEUTROPHILS # 5.4 10^3/uL (1.8-7.7); NEUTROPHILS % 66.8 % (36.0-66.0); PLATELET COUNT, AUTOMATED 345 10^3/uL (150-450); RED CELL DISTRIBUTION WIDTH 12.3 % (11.5-14.5)
[2017-08-13 15:06] LABS: ALBUMIN 3.6 GM/DL (3.2-5.2); ALBUMIN/GLOBULIN RATIO 1.29 (1.00-1.93); ALKALINE PHOSPHATASE 91 U/L (45-117); ALT/SGPT 23 U/L (12-78); ANION GAP 10 MEQ/L (8-16); AST/SGOT 14 U/L (15-37); BILIRUBIN,TOTAL 0.6 MG/DL (0.2-1.0); BLOOD UREA NITROGEN 10 MG/DL (7-18); CALCIUM LEVEL 8.9 MG/DL (8.5-10.1); CARBON DIOXIDE LEVEL 23 MEQ/L (21-32); CHLORIDE LEVEL 101 MEQ/L (98-107); CHOLESTEROL LEVEL 141 MG/DL (<200); CREATININE FOR GFR 0.72 MG/DL (0.55-1.02); FREE T4 3.37 NG/DL (0.76-1.46); GLOMERULAR FILTRATION RATE > 60.0 (>58); GLUCOSE, FASTING 229 MG/DL (70-105); SODIUM LEVEL 134 MEQ/L (136-145); TOTAL PROTEIN 6.4 GM/DL (6.4-8.2); TRIGLYCERIDES LEVEL 98 MG/DL (<150)
== END ==
LOC: M LAB 13:27
PROVIDERS: ATTEND Physician Assistant
DX: E05.90 Thyrotoxicosis, unspecified without thyrotoxic crisis or storm (principal); E78.5 Hyperlipidemia, unspecified; E10.649 Type 1 diabetes mellitus with hypoglycemia without coma; E55.9 Vitamin D deficiency, unspecified

== ENCOUNTER → 2018-01-13 | Outpatient (CLI) | payer OTHER ==
[2018-01-13 14:17] LABS: BASO # 0.1 10^3/uL (0.0-0.2); BASO % 0.8 % (0.0-1.0); EOS # 0.2 10^3/uL (0.0-0.50); EOS % 2.3 % (0.0-3.0); HEMATOCRIT 43.5 % (36.0-47.0); HEMOGLOBIN 15.1 g/dl (12.0-16.0); IMMATURE GRANULOCYTE % 0.1 % (0-3.0); LYMPH # 2.7 10^3/uL (1.5-4.5); LYMPH % 36.3 % (24.0-44.0); MEAN CORPUSCULAR HEMOGLOBIN 30.3 pg (27.0-33.0); MEAN CORPUSCULAR HGB CONC 34.7 g/dl (32.0-36.5); MEAN CORPUSCULAR VOLUME 87.2 fl (80.0-96.0); MONO # 0.4 10^3/uL (0.0-0.8); MONO % 5.2 % (0.0-5.0); NEUTROPHILS # 4.2 10^3/uL (1.8-7.7); NEUTROPHILS % 55.3 % (36.0-66.0); PLATELET COUNT, AUTOMATED 332 10^3/uL (150-450); RED BLOOD COUNT 4.99 10^6/uL (4.00-5.40); RED CELL DISTRIBUTION WIDTH 12.1 % (11.5-14.5); WHITE BLOOD COUNT 7.6 10^3/uL (4.0-10.0)
[2018-01-13 14:57] LABS: FREE T3 4.9 PG/ML (2.2-4.0); FREE T4 2.11 NG/DL (0.76-1.46); THYROID STIMULATING HORMONE < 0.005 uIU/ML (0.358-3.740)
[2018-01-13 14:57] LABS: MAGNESIUM LEVEL 1.7 MG/DL (1.8-2.4)
[2018-01-13 15:00] LABS: TOTAL 25(OH) VITAMIN D 46.7 NG/ML (30.0-100.0)
[2018-01-13 15:01] LABS: CREATININE, URINE 29.8 MG/DL; CREATININE,RANDOM URINE 29.8 MG/DL; MALB URINE SIEMENS 6.5 MG/L; MAU/CREAT RATIO 21.8 MCG/MG (0.0-30.0)
== END ==
LOC: M RAD 13:19
DX: Z12.31 Encounter for screening mammogram for malignant neoplasm of breast (principal)
CPT/HCPCS: 77067

== ENCOUNTER → 2018-03-23 | Outpatient (CLI) | payer OTHER | LOC: M CARPUL 17:03 | DX: R06.02 Shortness of breath (principal) | CPT/HCPCS: 71046 ==

== ENCOUNTER → 2018-09-23 | Outpatient (CLI) | payer OTHER | LOC: M PLARAD 13:54 | DX: M50.222 Other cervical disc displacement at C5-C6 level (principal); M50.223 Other cervical disc displacement at C6-C7 level | CPT/HCPCS: 72141 ==

== ENCOUNTER → 2019-02-21 | Outpatient (CLI) | payer OTHER ==
[~2019-02-21] MED LIST changes: -/PANT40TA PO; -DRIS50002 PO; +DRIS50003 PO; +FOLI1TAB11 PO; -FOLI1TAB4 PO; -GABA800T PO; +GABA800T4 PO; -IBUP200C10 PO; +IBUP200C25 PO; +LISI-1046 PO; -LISI2.5T3 PO; -MAGN1TAB25 PO; +MAGN1TAB26 PO; +PROT1TAB2 PO; +RAMI1CAP22 PO; -RAMI25CA PO; -TRAZ-136 PO; +TRAZ-163 PO; +ZANT150T15 PO; -ZANT1TAB PO; +ZOFR4TAB14 PO; -ZOFR4TAB3 PO
--- NOTE | 2019-02-21 15:11 | REPMRS ---
Patient History The patient states she has not had a clinical breast exam in over a year. Family history of breast cancer at age 55 in mother, breast cancer in maternal grandmother. Taking unspecified hormones for 4 months. Digital Mammo Screening Bilat: February 21, 2019 - Exam #: [id number] Bilateral CC and MLO view(s) were taken. Technologist: Esthela Smith, Technologist Prior study comparison: January 13, 2018, bilateral digital mammo screening bilat performed at [facility]. October 06, 2016, bilateral digital mammo screening bilat performed at [facility]. July 20, 2014, digital bilateral screening mammo, performed at [facility]. FINDINGS: The breast tissue is heterogeneously dense. This may lower the sensitivity of mammography. There is a moderate amount of heterogeneously dense fibroglandular tissue which is fairly symmetric. There is no interval development of dominant mass, architectural distortion, or clustered microcalcification typical of malignancy. There has been no change in the appearance of the mammogram from the prior studies. 3-D tomosynthesis shows no additional findings. Assessment: BI-RADS/ACR category 1 mammogram. Negative Mammogram. Recommendation Routine screening mammogram of both breasts in 1 year (for women over age 40). This patient's Lifetime Breast Cancer RIsk is estimated at 19.8 %. This mammogram was interpreted with the aid of an FDA-approved computer-aided dectection system. Electronically Signed By: Ranjit Reece MD 02/21/19 [id number]
== END ==
LOC: M RAD 13:21
PROVIDERS: ATTEND Nurse Practitioner Family
DX: Z12.31 Encounter for screening mammogram for malignant neoplasm of breast (principal)

== ENCOUNTER → 2019-03-07 | Outpatient (CLI) | payer OTHER ==
[2019-03-10 14:11] LABS: HPV LOW VOL RFLX Negative (Negative)
== END ==
LOC: M SMT 15:11
PROVIDERS: ATTEND Advanced Practice Midwife
DX: Z13.79 Encounter for other screening for genetic and chromosomal anomalies (principal); Z12.4 Encounter for screening for malignant neoplasm of cervix; N87.0 Mild cervical dysplasia

== ENCOUNTER → 2019-03-13 | Outpatient (CLI) | payer OTHER ==
--- NOTE | 2019-03-14 04:35 | REP ---
Clinical: Menorrhagia . Technique: Transabdominal pelvic ultrasound followed by transvaginal examination for better evaluation of the endometrium and adnexa with color Doppler evaluation of the ovaries. Findings: Bladder is unremarkable and measures 9.4 x 4.5 x 9.5 cm . Heterogeneous anteverted retroflexed uterus measures 8.8 x 4.5 x 6.9 cm and includes multiple scattered fibroids including 1.5 cm submucosal fibroid and 2.2 cm posterofundal intramural fibroid . The endometrial complex measures 10.0 mm thickness. Bilateral ovaries are normal in vascularity without evidence for torsion. Right ovary measures 3.6 x 2.4 x 2.6 cm with 3.1 cm simple cyst ; R I = 0.50 . Left ovary measures 3.3 x 2.1 x 3.1 cm with 1.6 cm hemorrhagic cyst / follicle ; R I = 0.53 . No pelvic fluid or adnexal mass lesion . Impression: 1. Heterogeneous uterus with myomatous changes. Electronically Signed by Luis Antonio Verde MD 03/14/2019 04:27 A
== END ==
LOC: M RAD 14:32
PROVIDERS: ATTEND Advanced Practice Midwife
DX: N92.4 Excessive bleeding in the premenopausal period (principal); D25.0 Submucous leiomyoma of uterus; D25.1 Intramural leiomyoma of uterus

== ENCOUNTER → 2019-04-18 | Outpatient (REF) | payer OTHER | LOC: M LAB REF 17:29 | PROVIDERS: ATTEND Advanced Practice Midwife | DX: N92.4 Excessive bleeding in the premenopausal period (principal) ==

== ENCOUNTER 2019-06-03 23:11 | Emergency (ER) | payer OTHER ==
[~2019-06-03] VITALS: Ht 170.2 cm; Wt 54.5 kg
[2019-06-04 01:38] LABS: BASO # 0.1 10^3/uL (0.0-0.2); BASO % 0.6 % (0.0-1.0); EOS # 0.3 10^3/uL (0.0-0.50); EOS % 2.6 % (0.0-3.0); HEMATOCRIT 38.7 % (36.0-47.0); HEMOGLOBIN 13.3 g/dl (12.0-15.5); LYMPH # 2.7 10^3/uL (1.5-4.5); LYMPH % 23.1 % (24.0-44.0); MEAN CORPUSCULAR HEMOGLOBIN 32.3 pg (27.0-33.0); MEAN CORPUSCULAR HGB CONC 34.4 g/dl (32.0-36.5); MEAN CORPUSCULAR VOLUME 93.9 fl (80.0-96.0); MONO # 0.8 10^3/uL (0.0-0.8); MONO % 7.2 % (0.0-5.0); NEUTROPHILS # 7.6 10^3/uL (1.8-7.7); NEUTROPHILS % 66.1 % (36.0-66.0); PLATELET COUNT, AUTOMATED 363 10^3/uL (150-450); RED BLOOD COUNT 4.12 10^6/uL (4.00-5.40); WHITE BLOOD COUNT 11.6 10^3/uL (4.0-10.0)
[2019-06-04 01:49] LABS: INR 0.97; PARTIAL THROMBOPLASTIN TIME 28.9 SECONDS (25.0-38.4); PROTHROMBIN TIME 12.6 SECONDS (11.8-14.0)
[2019-06-04 01:53] VITALS: BP 137/69
[2019-06-04 01:55] LABS: ERYTHROCYTE SEDIMENTATION RATE 5 mm/hr (0-20)
[2019-06-04 02:01] LABS: HEMOGLOBIN A1c 8.1 %
[2019-06-04 02:19] LABS: ALBUMIN 3.6 GM/DL (3.2-5.2); ALT/SGPT 21 U/L (12-78); BILIRUBIN,DIRECT < 0.1 MG/DL (0.0-0.2); BILIRUBIN,TOTAL 0.3 MG/DL (0.2-1.0); C REACTIVE PROTEIN QUANTITATIV < 0.30 MG/DL (0.00-0.30); FREE T4 1.12 NG/DL (0.76-1.46); THYROID STIMULATING HORMONE 0.028 uIU/ML (0.358-3.740); TOTAL PROTEIN 6.6 GM/DL (6.4-8.2)
[2019-06-16] MEDS ORDERED: METH25TAB PO (08:21)
[2019-06-16] MEDS ORDERED: OYST1TAB PO (08:21)
[2019-06-16] MEDS ORDERED: CLAR10TA7 PO (08:21)
== END 2019-06-04 02:36 | disposition home or self-care (01) ==
LOC: M ED 23:11
DX: R23.3 Spontaneous ecchymoses (principal); E11.40 Type 2 diabetes mellitus with diabetic neuropathy, unspecified; I10 Essential (primary) hypertension; J44.9 Chronic obstructive pulmonary disease, unspecified; E05.00 Thyrotoxicosis with diffuse goiter without thyrotoxic crisis or storm; F31.9 Bipolar disorder, unspecified; Z79.899 Other long term (current) drug therapy; Z79.4 Long term (current) use of insulin; F19.10 Other psychoactive substance abuse, uncomplicated; F17.210 Nicotine dependence, cigarettes, uncomplicated

== ENCOUNTER → 2019-06-14 | Outpatient (REF) | payer OTHER ==
[~2019-06-14] MED LIST changes: +CLAR10TA7 PO; +METH25TAB PO; +OYST1TAB PO
== END ==
LOC: M LAB REF 18:30
PROVIDERS: ATTEND Obstetrics & Gynecology
DX: N93.9 Abnormal uterine and vaginal bleeding, unspecified (principal)

== ENCOUNTER → 2019-06-15 | Outpatient (CLI) | payer OTHER ==
[~2019-06-15] MED LIST changes: -TRAZ-163 PO; +TRAZ-257 PO; -VICO7.5T11 PO; +VICO7.5T12 PO
[2019-06-15 18:04] LABS: BASO # 0.1 10^3/uL (0.0-0.2); BASO % 0.7 % (0.0-1.0); EOS # 0.3 10^3/uL (0.0-0.50); EOS % 2.7 % (0.0-3.0); HEMATOCRIT 40.8 % (36.0-47.0); HEMOGLOBIN 14.2 g/dl (12.0-15.5); LYMPH # 2.7 10^3/uL (1.5-4.5); LYMPH % 27.6 % (24.0-44.0); MEAN CORPUSCULAR HEMOGLOBIN 32.9 pg (27.0-33.0); MEAN CORPUSCULAR HGB CONC 34.8 g/dl (32.0-36.5); MEAN CORPUSCULAR VOLUME 94.4 fl (80.0-96.0); MONO # 0.5 10^3/uL (0.0-0.8); MONO % 5.4 % (0.0-5.0); NEUTROPHILS # 6.1 10^3/uL (1.8-7.7); NEUTROPHILS % 63.3 % (36.0-66.0); PLATELET COUNT, AUTOMATED 363 10^3/uL (150-450); RED BLOOD COUNT 4.32 10^6/uL (4.00-5.40); WHITE BLOOD COUNT 9.6 10^3/uL (4.0-10.0)
[2019-06-15 18:22] LABS: ALBUMIN 3.7 GM/DL (3.2-5.2); ALT/SGPT 25 U/L (12-78); BILIRUBIN,TOTAL 0.4 MG/DL (0.2-1.0); BLOOD UREA NITROGEN 9 MG/DL (7-18); CALCIUM LEVEL 8.5 MG/DL (8.5-10.1); CARBON DIOXIDE LEVEL 22 MEQ/L (21-32); CHLORIDE LEVEL 110 MEQ/L (98-107); CREATININE FOR GFR 0.83 MG/DL (0.55-1.30); GLOMERULAR FILTRATION RATE > 60.0 (>58); GLUCOSE, FASTING 47 MG/DL (70-100); POTASSIUM SERUM 3.9 MEQ/L (3.5-5.1); SODIUM LEVEL 140 MEQ/L (136-145); TOTAL PROTEIN 6.4 GM/DL (6.4-8.2)
== END ==
LOC: M WUC 14:54
PROVIDERS: ATTEND Nurse Practitioner Family
DX: Z01.818 Encounter for other preprocedural examination (principal)

== ENCOUNTER 2019-06-30 05:52 | Day surgery (SDC) | payer OTHER ==
[~2019-06-30] VITALS: Ht 170.2 cm; Wt 53.9 kg
[~2019-06-30 05:52] MED LIST changes: +TRAZ-163 PO; -TRAZ-257 PO; +VICO7.5T11 PO; -VICO7.5T12 PO
[2019-06-30] MEDS ORDERED: LR 1,000 ML IV ONE (06:00)
[2019-06-30 06:23] LABS: HEMATOCRIT 41.7 % (36.0-47.0); HEMOGLOBIN 14.3 g/dl (12.0-15.5); MEAN CORPUSCULAR HEMOGLOBIN 32.3 pg (27.0-33.0); MEAN CORPUSCULAR HGB CONC 34.3 g/dl (32.0-36.5); MEAN CORPUSCULAR VOLUME 94.1 fl (80.0-96.0); PLATELET COUNT, AUTOMATED 363 10^3/uL (150-450); RED BLOOD COUNT 4.43 10^6/uL (4.00-5.40); WHITE BLOOD COUNT 7.6 10^3/uL (4.0-10.0)
[2019-06-30] MEDS ORDERED: LIDOCAINE 2% INJ 100 MG/5 ML SDV (FOR ANES.) As Ordered ONE (07:03)
[2019-06-30] MEDS ORDERED: PROPOFOL 200 MG/20 ML VIAL As Ordered ONE (07:03)
[2019-06-30] MEDS ORDERED: fentaNYL 100 MCG/2 ML INJECTION (J3010) As Ordered ONE ×2 (07:03→10:00)
[2019-06-30] MEDS ORDERED: MIDAZOLAM INJ 2 MG/2 ML VIAL (J2250) As Ordered ONE (07:04)
[2019-06-30] MEDS ORDERED: SILVER NITRATE APPLICATOR As Ordered ONE (07:11)
[2019-06-30] MEDS ORDERED: METOCLOPRAMIDE INJ 10MG/2ML VIAL (J2765) As Ordered ONE (08:33)
[2019-06-30] MEDS ORDERED: dexameTHASONE 4 MG/ML 1ML VIAL (J1100) As Ordered ONE (08:33)
[2019-06-30] MEDS ORDERED: GLYCOPYRROLATE INJ 0.2 MG/ML 2 ML VIAL As Ordered ONE (09:02)
[2019-06-30] MEDS ORDERED: KETOROLAC 60 MG/2 ML VIAL (J1885) As Ordered ONE (09:07)
[2019-06-30] MEDS ORDERED: PERCOCET 5MG/325MG TAB As Ordered ONE (10:00)
[2019-06-30] MEDS ORDERED: PERCOCET PO (10:03)
[2019-06-30] MEDS: PERCOCET 5MG/325MG TAB PO PRN ×2 (10:04→10:39)
[2019-06-30] MEDS: fentaNYL 100 MCG/2 ML INJECTION (J3010) IV PRN ×2 (10:05→10:28)
[2019-06-30] MEDS ORDERED: PROMETHAZINE INJ 25 MG/ML VIAL (J2550) IV PRN (10:15)
[2019-06-30] MEDS ORDERED: HYDROMORPHONE HCL 0.5 MG/ 0.5 ML SYRINGE (J1170 PER 1) IV PRN (10:15)
[2019-06-30] MEDS ORDERED: ONDANSETRON 4MG/2ML VIAL (J2405) IV PRN (10:15)
[2019-06-30] MEDS ORDERED: LR 1,000 ML IV SCH ×2 (10:15)
[2019-06-30 11:27] VITALS: BP 121/60
--- NOTE | 2019-07-03 16:17 | RO ---
DATE OF PROCEDURE: 06/30/2019 PREOPERATIVE DIAGNOSIS: Abnormal uterine bleeding. POSTOPERATIVE DIAGNOSES: 1. Abnormal uterine bleeding. 2. Submucosal mass. FINDINGS: Atrophic lining along the entire intrauterine cavity submucosal mass was noted in posterior wall near the patient's left side. It was approximately 2 cm in greatest dimension. Otherwise, no other masses. Of note, the NovaSure device would not activate and I suspected it was due this mass being present in the cavity. This was not seen preoperatively during preoperative assessment. PROCEDURE: 1. Hysteroscopy, dilation and curettage. 2. NovaSure endometrial ablation attempt/NovaSure endometrial ablation aborted. 3. MyoSure morcellation of submucosal mass. SURGEON: Hugo Nassar DO LAN ANALYST: WOO Jones III ANESTHESIA TYPE: General via laryngeal mask airway (LMA). SPECIMENS SENT TO PATHOLOGY: 1. Endometrial curettings. 2. Morcellated endometrial mass. ESTIMATED BLOOD LOSS: 20 mL. FLUIDS REPLACED: 650 mL in-and-out catheter productive of 50 mL of urine output. COMPLICATIONS: NovaSure did not activate (suspect due to submucosal mass). FLUID DEFICIT: 930 mL of normal saline. PROPHYLACTIC ANTIBIOTICS: None indicated. INDICATION: 48-year-old with abnormal uterine bleeding desires of a NovaSure endometrial ablation. Preoperative endometrial tissue assessment revealed benign tissue. PROCEDURE: The patient was counseled and consented on the risks, benefits, indications, and alternatives of the procedure. Informed consent was obtained. She was taken to the operating room with an IV running, placed on operating table in the dorsal supine position. General anesthesia was administered and airway secured without any difficulty. She was placed in the high lithotomy position. She was prepared and draped in a normal sterile fashion. Time-out was performed per protocol. The bladder was drained with a sterile in-and-out catheter. A sterile speculum was placed with good visualization of the cervix. The anterior lip of the cervix was grasped with a single-tooth tenaculum and downward traction was applied. The uterus sounded to 7.5 cm. The cervix was sequentially dilated Jimmy dilators up to #16. The hysteroscope was placed transcervically into the intrauterine cavity with the findings noted above. The hysteroscope was removed. A light curettage was performed throughout the cavity with minimal tissue return. The NovaSure device was placed transcervically into the intrauterine cavity and deployed. Cavity assessment did not pass. We attempted a different NovaSure device thinking it may be a faulty device. However, in doing the same exact procedure with a different device, the cavity assessment again did not pass. The decision was made to abort the NovaSure procedure and given the finding of a submucosal mass described above, the decision was made to perform MyoSure morcellation of this mass. The MyoSure device was set up and the MyoSure hysteroscope was placed transcervically into the intrauterine cavity. The MyoSure Reach device was placed right up against this mass and activated. The mass was entirely removed. Custom Van Converter images were taken. There was minimal bleeding from this morcellation site. The devices were all removed. The single-tooth tooth tenaculum was removed. Tenaculum sites were noted be hemostatic. The patient tolerated the entire procedure very well. She was transferred to the postanesthesia care unit (PACU) in good and stable condition. RONIT
== END 2019-06-30 11:45 | disposition home or self-care (01) ==
LOC: M SDC 05:52
PROVIDERS: ATTEND Obstetrics & Gynecology
DX: N93.8 Other specified abnormal uterine and vaginal bleeding (principal); E05.00 Thyrotoxicosis with diffuse goiter without thyrotoxic crisis or storm; Z86.73 Personal history of transient ischemic attack (TIA), and cerebral infarction without residual deficits; G47.30 Sleep apnea, unspecified; E11.9 Type 2 diabetes mellitus without complications; Z79.4 Long term (current) use of insulin; F17.210 Nicotine dependence, cigarettes, uncomplicated; Z79.899 Other long term (current) drug therapy
CPT/HCPCS: 36415; 58558; 85027; 86850; 86900; 86901; 88305; J1100; J1885; J2250; J2765; J3010

== ENCOUNTER → 2020-05-28 | Outpatient (CLI) | payer OTHER ==
[~2020-05-28] MED LIST changes: +ADME100I; -ASPI81TA85 PO; +ASPI81TA86 PO; +COMBAER6; -LISI-1046 PO; +LISI2.5T2 PO; +LOSA25TA14 PO; +MULTCAP PO; -TRAZ-163 PO; +TRAZ-257 PO; -VICO7.5T11 PO; +VICO7.5T12 PO
--- NOTE | 2020-05-28 09:50 | REP ---
DIGITAL DIAGNOSTIC UNILATERAL LEFT BREAST MAMMOGRAPHY WITH CAD: Two views. HISTORY: Marker clip placement views. The patient status post ultrasound-guided needle biopsy for cystic lesion left breast. Mammographic study is compared from April 03, 2020. FINDINGS: CC and true MLO views of the left breast demonstrate a needle biopsy marker clip in the middle third of the left breast laterally and just caudal to the plane of the nipple. No hematoma is seen. There were no mammographic findings. IMPRESSION: Marker clip seen in the inferolateral quadrant left breast.
[2020-05-28 14:32] VITALS: BP 112/84
--- NOTE | 2020-05-28 15:27 | REP ---
ULTRASOUND GUIDED LEFT BREAST BIOPSY The procedure was performed under the general supervision of Dr. Reece The patient has a history of a 6 mm sized oval-shaped slightly complex hypoechoic structure, which is thickly septated, seen on a previous ultrasound dated 04/03/2020. The risks and benefits of the procedure were explained to the patient and informed consent was obtained. The left breast nodule was localized using ultrasound guidance. The skin was prepped and draped in a sterile fashion. 1% Xylocaine was used as a local anesthetic. Using ultrasound guidance a 14 gauge coaxial needle biopsy system was inserted and six core biopsy samples were obtained. A marker clip was placed at the biopsy site. (HydroMARK shape 4) The patient tolerated the procedure well and there were no immediate complications. After the appropriate amount of monitored convalescence the patient was discharged from the department. Electronically Signed by EMIL Cadena 05/28/2020 01:52 P Electronically Signed by Giacomo Reece MD 05/28/2020 03:18 P
== END ==
LOC: M WHCPRO 08:28
PROVIDERS: ATTEND Surgery
DX: N60.02 Solitary cyst of left breast (principal)

== ENCOUNTER → 2020-07-18 | Outpatient (REF) | payer OTHER ==
[2020-07-18 18:02] LABS: APPEARANCE, URINE CLEAR (CLEAR); BACTERIA, URINE AUTO NEGATIVE (NEGATIVE); BILIRUBIN, URINE AUTO NEGATIVE (NEGATIVE); BLOOD, URINE BLOOD NEGATIVE (NEGATIVE); COLOR, URINE YELLOW (YELLOW); GLUCOSE, URINE (UA) AUTO 1+ mg/dL (NEGATIVE); KETONE, URINE AUTO 1+ mg/dL (NEGATIVE); LEUKOCYTE ESTERASE, URINE AUTO NEGATIVE (NEGATIVE); NITRITE, URINE AUTO NEGATIVE (NEGATIVE); PROTEIN, URINE AUTO NEGATIVE (NEGATIVE); RBC, URINE AUTO 2 /HPF (0-3); SPECIFIC GRAVITY URINE AUTO 1.016 (1.002-1.035); SQUAMOUS EPITHELIAL CELL UR AU 1 /HPF (0-6); UROBILINOGEN, URINE AUTO 0.2 mg/dL (0.0-2.0); WBC, URINE AUTO 1 /HPF (0-3)
== END ==
LOC: M LAB REF 14:50
PROVIDERS: ATTEND Family Medicine
DX: R10.30 Lower abdominal pain, unspecified (principal)

== ENCOUNTER → 2020-08-09 | Outpatient (CLI) | payer OTHER ==
[2020-08-09 16:26] LABS: BASO # 0.1 10^3/uL (0.0-0.2); BASO % 0.4 % (0.0-1.0); EOS # 0.2 10^3/uL (0.0-0.5); EOS % 2.1 % (0.0-3.0); HEMATOCRIT 39.6 % (36.0-47.0); HEMOGLOBIN 12.6 g/dl (12.0-15.5); LYMPH # 2.1 10^3/uL (1.5-5.0); LYMPH % 18.4 % (24.0-44.0); MEAN CORPUSCULAR HEMOGLOBIN 29.1 pg (27.0-33.0); MEAN CORPUSCULAR HGB CONC 31.8 g/dl (32.0-36.5); MEAN CORPUSCULAR VOLUME 91.5 fl (80.0-96.0); MONO # 0.7 10^3/uL (0.0-0.8); MONO % 5.9 % (0.0-5.0); NEUTROPHILS # 8.1 10^3/uL (1.5-8.5); NEUTROPHILS % 72.8 % (36.0-66.0); PLATELET COUNT, AUTOMATED 340 10^3/uL (150-450); RED BLOOD COUNT 4.33 10^6/uL (4.00-5.40); WHITE BLOOD COUNT 11.1 10^3/uL (4.0-10.0)
[2020-08-09 16:54] LABS: ALBUMIN 3.3 GM/DL (3.2-5.2); ALT/SGPT 43 U/L (12-78); BILIRUBIN,TOTAL 0.4 MG/DL (0.2-1.0); BLOOD UREA NITROGEN 13 MG/DL (7-18); CALCIUM LEVEL 9.2 MG/DL (8.5-10.1); CARBON DIOXIDE LEVEL 25 MEQ/L (21-32); CHLORIDE LEVEL 108 MEQ/L (98-107); CREATININE FOR GFR 0.83 MG/DL (0.55-1.30); CREATININE, URINE 92.1 MG/DL; GLOMERULAR FILTRATION RATE > 60.0 (>51); GLUCOSE, FASTING 250 MG/DL (70-100); MALB URINE SIEMENS 9.6 MG/L; MAU/CREAT RATIO 10.4 MCG/MG (0.0-30.0); POTASSIUM SERUM 4.6 MEQ/L (3.5-5.1); SODIUM LEVEL 140 MEQ/L (136-145); THYROID STIMULATING HORMONE < 0.005 uIU/ML (0.358-3.740); TOTAL PROTEIN 6.3 GM/DL (6.4-8.2)
[2020-08-09 16:58] LABS: HEMOGLOBIN A1c 6.9 %
== END ==
LOC: M PLALAB 12:52
PROVIDERS: ATTEND Internal Medicine
DX: E05.90 Thyrotoxicosis, unspecified without thyrotoxic crisis or storm (principal); E10.65 Type 1 diabetes mellitus with hyperglycemia

== ENCOUNTER → 2020-09-05 | Outpatient (CLI) | payer OTHER | LOC: M LABSMTC 09:40 | PROVIDERS: ATTEND Anesthesiology | DX: Z01.818 Encounter for other preprocedural examination (principal) | CPT/HCPCS: C9803; U0003 ==

== ENCOUNTER 2020-09-10 06:01 | Day surgery (SDC) | payer OTHER ==
[~2020-09-10] VITALS: Ht 170.2 cm; Wt 54.0 kg
[2020-09-10] MEDS ORDERED: ceFAZolin SOD 1 GM in D5W MINI-BAG PLUS 50 ML IV ONE (07:00)
[2020-09-10] MEDS ORDERED: LR 1,000 ML IV ONE (07:00)
[2020-09-10] MEDS ORDERED: LIDOCAINE 2% 100MG/5ML SDV (FOR ANES.) As Ordered ONE (07:10)
[2020-09-10] MEDS ORDERED: ROCURONIUM BROMIDE 50 MG/5 ML VIAL As Ordered ONE (07:10)
[2020-09-10] MEDS ORDERED: propofoL 200 MG/20 ML VIAL As Ordered ONE (07:10)
[2020-09-10] MEDS ORDERED: ONDANSETRON 4MG/2ML VIAL As Ordered ONE (07:11)
[2020-09-10] MEDS ORDERED: MIDAZOLAM INJ 2MG/2ML VIAL (J2250 PER 1MG) As Ordered ONE (07:11)
[2020-09-10] MEDS ORDERED: dexameTHASONE 4 MG/ML 1ML VIAL (J1100 PER 1MG) As Ordered ONE (07:11)
[2020-09-10] MEDS ORDERED: fentaNYL 100 MCG/2 ML INJECTION (J3010) As Ordered ONE ×2 (07:11→08:41)
[2020-09-10] MEDS ORDERED: BUPIVACAINE HCL 0.25% 10ML VIAL As Ordered ONE (07:12)
[2020-09-10] MEDS ORDERED: BUPIVACAINE LIPOSOME/PF 1.3% 20ML VIAL (13.3MG/ML)(EXPAREL)(C9290 PER1MG) As Ordered ONE (07:12)
[2020-09-10] MEDS ORDERED: ACETAMINOPHEN 1000MG 100ML IV BTL (OFIRMEV) (J0131 PER 10MG) As Ordered ONE (08:01)
[2020-09-10] MEDS ORDERED: KETOROLAC 60MG 2ML VIAL As Ordered ONE ×2 (08:05→08:07)
[2020-09-10] MEDS ORDERED: PHENYLephrine HCL 500 MCG/5 ML (100MCG/ML) SYRINGE (J2370) As Ordered ONE ×2 (08:05→08:08)
[2020-09-10] MEDS ORDERED: SUGAMMADEX SODIUM 500 MG/5 ML VIAL (BRIDION) As Ordered ONE (08:07)
[2020-09-10] MEDS ORDERED: ATROPINE SULF 0.4 MG/ML 1ML VIAL (J0461) As Ordered ONE (08:08)
[2020-09-10] MEDS ORDERED: oxyCODONE 5MG TAB As Ordered ONE (08:41)
[2020-09-10] MEDS: oxyCODONE 5MG TAB PO PRN ×2 (08:45→09:36)
[2020-09-10] MEDS ORDERED: fentaNYL 100 MCG/2 ML INJECTION (J3010) IV PRN (09:00)
[2020-09-10] MEDS ORDERED: ONDANSETRON 4MG/2ML VIAL IV PRN (09:00)
[2020-09-10] MEDS ORDERED: NS 1,000 ML IV SCH (09:00)
[2020-09-10] MEDS ORDERED: LR 1,000 ML IV SCH (09:00)
[2020-09-10] MEDS ORDERED: PERCOCET 5MG/325MG TAB PO PRN (09:00)
[2020-09-10 10:09] VITALS: BP 123/66
--- NOTE | 2020-09-11 13:20 | RO ---
DATE OF OPERATION: 09/10/2020 PREOPERATIVE DIAGNOSIS: Umbilical hernia. POSTOPERATIVE DIAGNOSIS: Umbilical hernia. PROCEDURE: Umbilical hernia repair. SURGEON: Mark Anthony Ritchie MD MUSIC PUBLICIST: ANESTHESIA: General endotracheal. EBL: Minimal. FLUIDS: Crystalloid. BRIEF PROCEDURE SUMMARY: The patient was brought to the operating room, was given general anesthesia. After adequate anesthesia preoperative antibiotics were given. The patient was prepped and draped in usual sterile fashion. Longitudinal incision above the umbilicus was created with skin knife and hernia was just above her belly button ring site. In any case incision was made and combination of blunt and sharp dissection was used to dissect down to the hernia itself. The hernia site had preperitoneal fat as well as what appeared to be part of the falciform ligament coming up through this defect. This was mobilized down to the level of the fascial defect. Once this was nicely cleared of surrounding tissues the hernia sac contents were transected at the level of the fascia. The falciform ligament was also ligated with Vicryl tie and transected and the fascial defect was closed with two [id number] #0 Ethibond sutures. Exparel was placed circumferentially and 3-0 Vicryl was used to approximate the subcutaneous tissue dermis and 4-0 Vicryl was used to approximate the skin. Steri-Strips and dry, sterile dressing were applied. The patient was awakened, extubated and brought to recovery room awake, alert and hemodynamically stable. Sponge and needle counts correct x2. MTDD
== END 2020-09-10 10:10 | disposition home or self-care (01) ==
LOC: M SDC 06:01
PROVIDERS: ATTEND Surgery
DX: K42.9 Umbilical hernia without obstruction or gangrene (principal); E10.9 Type 1 diabetes mellitus without complications; Z79.4 Long term (current) use of insulin; E03.9 Hypothyroidism, unspecified; Z79.899 Other long term (current) drug therapy; Z86.73 Personal history of transient ischemic attack (TIA), and cerebral infarction without residual deficits; K57.92 Diverticulitis of intestine, part unspecified, without perforation or abscess without bleeding; F17.218 Nicotine dependence, cigarettes, with other nicotine-induced disorders
CPT/HCPCS: 49585; 88302; C9290; J0131; J0461; J0690; J1100; J1885; J2250; J2370; J2405; J3010

== ENCOUNTER → 2020-09-14 | Outpatient (CLI) | payer OTHER | LOC: M LABSMTC 09:28 | PROVIDERS: ATTEND Anesthesiology | DX: Z01.812 Encounter for preprocedural laboratory examination (principal); Z20.828 Contact with and (suspected) exposure to other viral communicable diseases | CPT/HCPCS: C9803; U0003 ==

== ENCOUNTER 2020-09-19 07:18 | Day surgery (SDC) | payer OTHER ==
[~2020-09-19] VITALS: Ht 170.2 cm; Wt 56.2 kg
[~2020-09-19 07:18] MED LIST changes: +LIDOCAINE 2% 100MG/5ML SDV (FOR ANES.) As Ordered ONE; +NS 1,000 ML IV ONE; +propofoL 200 MG/20 ML VIAL As Ordered ONE
[2020-09-19] MEDS ORDERED: PHENYLephrine HCL 500 MCG/5 ML (100MCG/ML) SYRINGE (J2370) As Ordered ONE (08:11)
--- NOTE | 2020-09-19 08:26 | ROOR ---
Patient Name: Yesi Marks Procedure Date: 09/19/2020 8:05 AM Date of : 1970 Age: 49 Room: [facility] Gender: Female Note Status: Finalized Procedure: Colonoscopy Indications: Screening for colorectal malignant neoplasm Providers: Mark Anthony Ritchie Jr, MD Referring MD: Marshal Richards MD Requesting Provider: Medicines: Propofol per Anesthesia Complications: No immediate complications. Procedure: Pre-Anesthesia Assessment: - Prior to the procedure, a History and Physical was performed, and patient medications and allergies were reviewed. The patient is competent. The risks and benefits of the procedure and the sedation options and risks were discussed with the patient. All questions were answered and informed consent was obtained. Patient identification and proposed procedure were verified by the physician and the nurse in the pre-procedure area and in the procedure room. Mental Status Examination: alert and oriented. Airway Examination: normal oropharyngeal airway and neck mobility. Respiratory Examination: clear to auscultation. CV Examination: normal. ASA Grade Assessment: II - A patient with mild systemic disease. After reviewing the risks and benefits, the patient was deemed in satisfactory condition to undergo the procedure. The anesthesia plan was to use moderate sedation / analgesia (conscious sedation). Immediately prior to administration of medications, the patient was re-assessed for adequacy to receive sedatives. The heart rate, respiratory rate, oxygen saturations, blood pressure, adequacy of pulmonary ventilation, and response to care were monitored throughout the procedure. The physical status of the patient was re-assessed after the procedure. The Colonoscope was introduced through the anus and advanced to the cecum, identified by appendiceal orifice and ileocecal valve. The colonoscopy was performed without difficulty. The patient tolerated the procedure well. The quality of the bowel preparation was adequate. Findings: The rectum, recto-sigmoid colon, sigmoid colon, descending colon, transverse colon, ascending colon, cecum, appendiceal orifice and ileocecal valve appeared normal. The sigmoid colon, descending colon, transverse colon and ascending colon were moderately redundant. Non-bleeding internal hemorrhoids were found during endoscopy. The hemorrhoids were Grade II (internal hemorrhoids that prolapse but reduce spontaneously) and Grade III (internal hemorrhoids that prolapse but require manual reduction). Impression: - The rectum, recto-sigmoid colon, sigmoid colon, descending colon, transverse colon, ascending colon, cecum, appendiceal orifice and ileocecal valve are normal. - Redundant colon. - Non-bleeding internal hemorrhoids. - No specimens collected. Recommendation: - Discharge patient to home (ambulatory). - Repeat colonoscopy in 10 years for screening purposes. Mark Anthony Ritchie MD Mark Anthony Ritchie Jr, MD 09/19/2020 8:26:26 AM Electronically signed by Mark Anthony Ritchie Jr, MD Number of Addenda: 0 Note Initiated On: 09/19/2020 8:05 AM Estimated Blood Loss: Estimated blood loss: none.
[2020-09-19 08:48] VITALS: BP 91/49
== END 2020-09-19 09:13 | disposition home or self-care (01) ==
LOC: M OPP 07:18
PROVIDERS: ATTEND Surgery
DX: Z12.11 Encounter for screening for malignant neoplasm of colon (principal); K64.2 Third degree hemorrhoids; K64.1 Second degree hemorrhoids; Q43.8 Other specified congenital malformations of intestine; Z88.1 Allergy status to other antibiotic agents
CPT/HCPCS: 45378; J2370

== ENCOUNTER → 2020-11-14 | Outpatient (CLI) | payer OTHER ==
[~2020-11-14] MED LIST changes: -LIDOCAINE 2% 100MG/5ML SDV (FOR ANES.) As Ordered ONE; -NS 1,000 ML IV ONE; -propofoL 200 MG/20 ML VIAL As Ordered ONE
[2020-11-14 18:01] LABS: FREE T4 2.57 NG/DL (0.76-1.46); THYROID STIMULATING HORMONE < 0.005 uIU/ML (0.358-3.740)
[2020-11-14 18:06] LABS: TOTAL T3 243.8 NG/DL (60.0-181.0)
== END ==
LOC: M PLALAB 13:55
PROVIDERS: ATTEND Physician Assistant
DX: E05.90 Thyrotoxicosis, unspecified without thyrotoxic crisis or storm (principal)

== ENCOUNTER → 2021-01-21 | Outpatient (CLI) | payer OTHER ==
--- NOTE | 2021-01-21 17:20 | REP ---
INDICATION: N63.20 LT BREAST MASS,S/P BENIGN BX. Please reassess stability/size change. Status post benign biopsy. 3 o'clock lesion left breast. COMPARISON: Comparison ultrasound April 03, 2020 and May 28, 2020.. TECHNIQUE: Targeted left breast sonography 3 o'clock region at previous biopsy site. FINDINGS: Heterogeneous fibroglandular background echotexture is seen. The previously placed HydroMARK clip is noted at 3 o'clock position in the left breast. There is some hypoechoic fluid surrounding the clip itself still in the HydroMARK device. There is no evidence of soft tissue mass, cyst breast cyst, or acoustic shadowing. No suspicious sonographic finding. IMPRESSION: BI-RADS category 2 benign findings. HydroMARK clip noted at 3 o'clock at the biopsy site. No suspicious sonographic target. <Electronically signed by Ranjit Reece > 01/21/21 [id number]
== END ==
LOC: M WHC 15:41
PROVIDERS: ATTEND Surgery
DX: N63.20 Unspecified lump in the left breast, unspecified quadrant (principal)

== ENCOUNTER → 2021-04-04 | Outpatient (CLI) | payer OTHER ==
--- NOTE | 2021-04-04 16:34 | REPMRS ---
Patient History The patient states she has not had a clinical breast exam in over a year. Family history of breast cancer at age 55 in mother, breast cancer in maternal grandmother. Benign US guided breast biopsy. of the left breast, May 28, 2020. Took unspecified hormones for 4 months. Patient states no breast complaints today. Patient has signed MRS History Sheet. Digital Woman Screen Mammo: April 04, 2021 - Exam #: [id number] Bilateral CC and MLO view(s) were taken. Technologist: Gerda Santiago, Technologist Prior study comparison: May 28, 2020, left breast diagnostic unilateral mammo performed at [facility]. February 21, 2019, bilateral digital mammo screening bilat, performed at [facility]. January 13, 2018, bilateral digital mammo screening bilat, performed at [facility]. FINDINGS: There are scattered fibroglandular densities. The Volpara volumetric breast density category is: B. There is a moderate amount of residual fibroglandular tissue which is fairly symmetric. There is no interval development of dominant mass, architectural distortion, or grouped microcalcification typical of malignancy. There has been no change in the appearance of the mammogram from the prior studies. 3-D tomosynthesis shows no additional findings. Assessment: BI-RADS/ACR category 1 mammogram. Negative Mammogram. Recommendation Routine screening mammogram of both breasts in 1 year (for women over age 40). This patient's [facility] Lifetime Breast Cancer RIsk is estimated at 19.1 %. This mammogram was interpreted with the aid of an FDA-approved computer-aided dectection system. Electronically Signed By: Ranjit Reece MD 04/04/21 2122
== END ==
LOC: M WHC 15:00
PROVIDERS: ATTEND Nurse Practitioner Women's Health
DX: Z12.31 Encounter for screening mammogram for malignant neoplasm of breast (principal); Z80.3 Family history of malignant neoplasm of breast; Z91.89 Other specified personal risk factors, not elsewhere classified; Z86.018 Personal history of other benign neoplasm; Z92.29 Personal history of other drug therapy

== ENCOUNTER → 2021-05-28 | Outpatient (CLI) | payer OTHER ==
[2021-05-28 19:34] LABS: FREE T3 3.5 PG/ML (2.2-4.0); THYROID STIMULATING HORMONE < 0.005 uIU/ML (0.358-3.740)
== END ==
LOC: M PLALAB 15:00
PROVIDERS: ATTEND Physician Assistant
DX: E05.90 Thyrotoxicosis, unspecified without thyrotoxic crisis or storm (principal)